=== PATIENT | female | born 1965 | race Caucasian/White ===

== ENCOUNTER 2018-08-31 04:12 | Emergency (ER) | payer SELFPAY ==
[2018-08-31] MEDS: IBUPROFEN 800 MG TAB PO (07:16)
[2018-08-31] MEDS: LIDOCAINE 1% (MDV) 20 ML INJ SC (07:17)
[2018-08-31] MEDS: DIPHTH/TET/ACEL PERTUSS (ADULT) 0.5 ML VIAL IM* (07:17)
[2018-08-31] MEDS: BACITRACIN 0.9 GM OINT TOP (07:17)
== END 2018-08-31 08:29 | disposition home or self-care (01) ==
LOC: FTE 08:29
DX: S61.210A Laceration without foreign body of right index finger without damage to nail, initial encounter (principal); I10 Essential (primary) hypertension; W26.9XXA Contact with unspecified sharp object(s), initial encounter; Y92.9 Unspecified place or not applicable; Z23 Encounter for immunization
CPT/HCPCS: 12002; 90471; 90715; 99283-25

== ENCOUNTER 2018-09-06 18:02 | Emergency (ER) | payer SELFPAY | END 2018-09-06 18:23 | disposition home or self-care (01) | LOC: E/R 18:23 | DX: Z48.00 Encounter for change or removal of nonsurgical wound dressing (principal); I10 Essential (primary) hypertension | CPT/HCPCS: 99281 ==